=== PATIENT | female | born 1955 | race Caucasian/White ===

== ENCOUNTER 2017-10-19 20:44 | Emergency (ER) | payer MEDICAID ==
[~2017-10-19] VITALS: Ht 162.6 cm; Wt 67.7 kg
[2017-10-19 20:45] VITALS: BP 125/84
[2017-10-19 21:18] LABS: CULTURE INDICATED? YES; MICROSCOPIC INDICATED
[2017-10-19] MEDS ORDERED: PHENAZOPYRIDINE 200 MG TABLET ONE (22:47)
[2017-10-19] MEDS ORDERED: PHENAZOPYRIDINE 200 MG TABLET PO ONE (23:00)
== END 2017-10-19 23:17 ==
LOC: ED 23:14
DX: N39.0 Urinary tract infection, site not specified (principal); R30.0 Dysuria
CPT/HCPCS: 81001; 87086; 99284

== ENCOUNTER 2018-08-18 18:17 | Emergency (ER) | payer MEDICAID ==
[~2018-08-18] VITALS: Ht 162.6 cm; Wt 58.1 kg
[2018-08-18 18:27] VITALS: BP 107/70
[2018-08-18 18:51] LABS: BASOPHILS # (AUTO) 0.04 x10^3/uL (0-0.1); BASOPHILS % (AUTO) 0 % (0-1); EOSINOPHILS # (AUTO) 0.07 x10^3/uL (0-0.4); EOSINOPHILS % (AUTO) 1 % (1-7); LYMPHOCYTES # (AUTO) 2.47 x10^3/uL (1-3.4); LYMPHOCYTES % (AUTO) 28 % (22-44); MD NO; MEAN CORPUSCULAR HEMOGLOBIN 30.1 pg (27.0-34.8); MEAN CORPUSCULAR HGB CONC 33.1 g/dL (32.4-35.8); MEAN CORPUSCULAR VOLUME 91.1 fL (80-100); MEAN PLATELET VOLUME 8.2 fL (7.4-10.4); MONOCYTES # (AUTO) 0.44 x10^3/uL (0.2-0.8); MONOCYTES % (AUTO) 5 % (2-9); NEUTROPHILS # (AUTO) 5.73 x10^3/uL (1.8-6.8); NEUTROPHILS % (AUTO) 66 % (42-75); PLATELET COUNT 279 x10^3/uL (130-400); RED BLOOD COUNT 5.02 x10^6/uL (3.82-5.3); RED CELL DISTRIBUTION WIDTH 14.1 % (9.6-15.2)
[2018-08-18] MEDS ORDERED: PHENAZOPYRIDINE 200 MG TABLET ONE (19:00)
[2018-08-18] MEDS ORDERED: PHENAZOPYRIDINE 200 MG TABLET PO ONE (19:00)
[2018-08-18 19:04] LABS: ALBUMIN 4.2 g/dL (3.4-5.0); ANION GAP 7 mmol/L (5-15); CALCIUM 8.6 mg/dL (8.5-10.1); CHLORIDE 105 mmol/L (98-107); CREATININE 1.13 mg/dL (0.55-1.02)
[2018-08-18 19:07] LABS: CULTURE INDICATED? YES; MICROSCOPIC INDICATED
== END 2018-08-18 19:46 | disposition home or self-care (01) ==
LOC: ED 19:40
DX: N30.01 Acute cystitis with hematuria (principal); F17.200 Nicotine dependence, unspecified, uncomplicated
CPT/HCPCS: 36415; 80048; 81001; 82040; 85025; 87086; 99284

== ENCOUNTER 2019-01-15 08:50 | Inpatient (IN) | payer MEDICAID ==
[~2019-01-15] VITALS: Ht 162.6 cm; Wt 56.3 kg
[2019-01-15] MEDS ORDERED: BISACODYL 10 MG SUPP PR PRN (09:30)
[2019-01-15] MEDS ORDERED: ONDANSETRON ODT 4 MG PO PRN (09:30)
[2019-01-15] MEDS ORDERED: POLYETHYLENE GLYCOL 17 GM PACKET PO PRN (09:30)
[2019-01-15] MEDS ORDERED: PROP10TA16 PO (09:34)
[2019-01-15] MEDS ORDERED: ARIP15TA3 PO (09:34)
[2019-01-15] MEDS ORDERED: NAPR375T5 PO (09:34)
[2019-01-15] MEDS ORDERED: OMEP20TA62 PO (09:34)
[2019-01-15] MEDS ORDERED: PHEN-418 PO (09:34)
[2019-01-15] MEDS ORDERED: HYDR25TA11 PO (09:34)
[2019-01-15] MEDS ORDERED: ALEN70TA3 PO (09:34)
[2019-01-15] MEDS ORDERED: NITR100C56 PO (09:34)
[2019-01-15] MEDS ORDERED: CALC-534 PO (09:34)
[2019-01-15 10:00] VITALS: BP 117/75
[2019-01-15 10:10] VITALS: BP_SYST 107; BP_SYST 117; BP_SYST 99; BP_DIAS 67; BP_DIAS 72; BP_DIAS 75
[2019-01-15] MEDS ORDERED: VENLAFAXINE 75MG TABLET PO SCH (16:00)
[2019-01-15 17:53] LABS: MICROSCOPIC INDICATED
[2019-01-15 18:25] LABS: CULTURE INDICATED? NO
[2019-01-15 19:27] VITALS: BP 101/68
[2019-01-16 07:19] VITALS: BP 94/67
[2019-01-16] MEDS: NICOTINE 14MG/24 HR PATCH.TD24 TD SCH (08:22)
[2019-01-16] MEDS: VENLAFAXINE 75MG TABLET PO SCH (08:23)
[2019-01-16] MEDS: ARIPIPRAZOLE 15 MG TABLET PO SCH (08:23)
[2019-01-16] MEDS: hydrOXyzine 10 MG/5 ML ORAL SOL PO SCH (08:24)
[2019-01-16 09:17] LABS: BASOPHILS # (AUTO) 0.03 x10^3/uL (0-0.1); BASOPHILS % (AUTO) 1 % (0-1); EOSINOPHILS % (AUTO) 2 % (1-7); LYMPHOCYTES # (AUTO) 2.15 x10^3/uL (1-3.4); LYMPHOCYTES % (AUTO) 42 % (22-44); MD NO; MEAN CORPUSCULAR HEMOGLOBIN 29.1 pg (27.0-34.8); MEAN CORPUSCULAR HGB CONC 32.5 g/dL (32.4-35.8); MEAN CORPUSCULAR VOLUME 89.5 fL (80-100); MEAN PLATELET VOLUME 8.1 fL (7.4-10.4); MONOCYTES # (AUTO) 0.24 x10^3/uL (0.2-0.8); MONOCYTES % (AUTO) 5 % (2-9); NEUTROPHILS # (AUTO) 2.67 x10^3/uL (1.8-6.8); NEUTROPHILS % (AUTO) 51 % (42-75); PLATELET COUNT 249 x10^3/uL (130-400); RED BLOOD COUNT 4.72 x10^6/uL (3.82-5.3); RED CELL DISTRIBUTION WIDTH 13.3 % (9.6-15.2)
[2019-01-16 09:29] LABS: ANION GAP 6 mmol/L (5-15); CALCIUM 8.6 mg/dL (8.5-10.1); CHLORIDE 103 mmol/L (98-107)
[2019-01-16 09:59] LABS: CHOL/HDL RATIO 2.9; CHOLESTEROL, TOTAL 172 mg/dL (140-239); CREATININE 0.96 mg/dL (0.55-1.02); FREE T4 (FREE THYROXINE) 0.86 ng/dL (0.76-1.46); HDL CHOL % 34 % (28-40); HDL CHOLESTEROL (DIRECT) 59 mg/dL (40-60); LDL CHOLESTEROL,CALCULATED 99 mg/dL (54-169); LDL/HDL RATIO 1.7 (0.5-3.0); TRIGLYCERIDES 68 mg/dL (50-200); VLDL CHOLESTEROL 14 mg/dL (0-25)
[2019-01-16 19:37] VITALS: BP 100/71
[2019-01-17 07:35] VITALS: BP 100/65
[2019-01-17] MEDS: ARIPIPRAZOLE 15 MG TABLET PO SCH (08:41)
[2019-01-17] MEDS: VENLAFAXINE 75MG TABLET PO SCH (08:41)
[2019-01-17] MEDS: NICOTINE 14MG/24 HR PATCH.TD24 TD SCH (08:42)
[2019-01-17 19:38] VITALS: BP 92/57
[2019-01-17] MEDS: ROPINIROLE 0.5MG TABLET PO SCH (20:31)
[2019-01-18 07:57] VITALS: BP 114/79
[2019-01-18] MEDS: VENLAFAXINE 75MG TABLET PO SCH (08:08)
[2019-01-18] MEDS: hydrOXyzine 10 MG/5 ML ORAL SOL PO SCH ×2 (08:08→09:17)
[2019-01-18] MEDS: ARIPIPRAZOLE 15 MG TABLET PO SCH (08:08)
[2019-01-18] MEDS: NICOTINE 14MG/24 HR PATCH.TD24 TD SCH (08:09)
[2019-01-18] MEDS: DOCUSATE 100 MG CAPSULE PO PRN ×2 (08:47→20:48)
[2019-01-18 11:05] LABS: HEMOGLOBIN A1C 6.1 % (4.2-6.3)
[2019-01-18 20:00] VITALS: BP 91/66
[2019-01-18] MEDS: ROPINIROLE 0.5MG TABLET PO SCH (20:48)
[2019-01-19 07:45] VITALS: BP 103/71
[2019-01-19] MEDS: VENLAFAXINE 75MG TABLET PO SCH (08:35)
[2019-01-19] MEDS: ARIPIPRAZOLE 15 MG TABLET PO SCH (08:35)
[2019-01-19] MEDS: NICOTINE 14MG/24 HR PATCH.TD24 TD SCH (08:35)
[2019-01-19] MEDS: hydrOXyzine 10 MG/5 ML ORAL SOL PO SCH (08:36)
[2019-01-19] MEDS: ROPINIROLE 0.5MG TABLET PO SCH (19:43)
[2019-01-19 19:59] VITALS: BP 105/86
[2019-01-20 07:31] VITALS: BP 120/78
[2019-01-20] MEDS: NICOTINE 14MG/24 HR PATCH.TD24 TD SCH (08:26)
[2019-01-20] MEDS: hydrOXyzine 10 MG/5 ML ORAL SOL PO SCH (08:27)
[2019-01-20] MEDS: VENLAFAXINE 75MG TABLET PO SCH (08:27)
[2019-01-20] MEDS: ARIPIPRAZOLE 15 MG TABLET PO SCH (08:27)
[2019-01-20 19:54] VITALS: BP 95/68
[2019-01-20] MEDS: ROPINIROLE 0.5MG TABLET PO SCH (20:13)
[2019-01-21 07:26] VITALS: BP 104/71
[2019-01-21] MEDS: ARIPIPRAZOLE 15 MG TABLET PO SCH (08:23)
[2019-01-21] MEDS: GUAIFENESIN/DM 200-20MG, 10ML UDC PO PRN (08:23)
[2019-01-21] MEDS: VENLAFAXINE 75MG TABLET PO SCH (08:23)
[2019-01-21] MEDS: NICOTINE 14MG/24 HR PATCH.TD24 TD SCH (08:27)
[2019-01-21] MEDS: ROPINIROLE 0.5MG TABLET PO SCH (20:08)
[2019-01-21 20:51] VITALS: BP 98/64
[2019-01-21] MEDS ORDERED: SIMETHICONE DROPS 40 MG/0.6 ML BOTTLE PO PRN (21:00)
[2019-01-21] MEDS ORDERED: SIMETHICONE 80 MG CHEW TAB PO PRN (21:00)
[2019-01-22 07:58] VITALS: BP 97/63
[2019-01-22] MEDS: ARIPIPRAZOLE 15 MG TABLET PO SCH (08:20)
[2019-01-22] MEDS: VENLAFAXINE 75MG TABLET PO SCH (08:20)
[2019-01-22] MEDS: GUAIFENESIN/DM 200-20MG, 10ML UDC PO PRN (08:22)
[2019-01-22] MEDS: NICOTINE 14MG/24 HR PATCH.TD24 TD SCH (08:26)
[2019-01-22 19:31] VITALS: BP 102/70
[2019-01-22] MEDS: ROPINIROLE 0.5MG TABLET PO SCH (20:27)
[2019-01-23 07:27] VITALS: BP 100/67
[2019-01-23] MEDS: NICOTINE 14MG/24 HR PATCH.TD24 TD SCH (08:41)
[2019-01-23] MEDS: VENLAFAXINE 75MG TABLET PO SCH (08:41)
[2019-01-23] MEDS: ARIPIPRAZOLE 15 MG TABLET PO SCH (08:41)
[2019-01-23] MEDS: GUAIFENESIN/DM 200-20MG, 10ML UDC PO PRN (08:59)
== END 2019-01-23 15:00 | disposition home or self-care (01) | DRG 885 ==
LOC: EDSTATUS 08:51 → 3E 09:59
PROVIDERS: ADMIT Psychiatry & Neurology Psychosomatic Medicine; ATTEND Psychiatry & Neurology Psychosomatic Medicine
DX: F31.4 Bipolar disorder, current episode depressed, severe, without psychotic features (principal); F15.20 Other stimulant dependence, uncomplicated; F17.210 Nicotine dependence, cigarettes, uncomplicated; F41.9 Anxiety disorder, unspecified; G47.00 Insomnia, unspecified; K21.9 Gastro-esophageal reflux disease without esophagitis; M81.0 Age-related osteoporosis without current pathological fracture; Z90.710 Acquired absence of both cervix and uterus; Z91.14 Patient's other noncompliance with medication regimen; Z91.5 Personal history of self-harm; Z88.8 Allergy status to other drugs, medicaments and biological substances; Z88.5 Allergy status to narcotic agent; Z82.49 Family history of ischemic heart disease and other diseases of the circulatory system; Z80.3 Family history of malignant neoplasm of breast; M19.90 Unspecified osteoarthritis, unspecified site; G89.29 Other chronic pain; E03.9 Hypothyroidism, unspecified; F43.10 Post-traumatic stress disorder, unspecified; F10.10 Alcohol abuse, uncomplicated; Y90.9 Presence of alcohol in blood, level not specified
CPT/HCPCS: 36415; 71045; 80048; 80061; 81001; 82140; 82607; 83036; 84439; 84443; 85025; 86592; 93005; 92522-GN; Q0177